=== PATIENT | male | born 1940 | race Caucasian/White ===

== ENCOUNTER 2017-11-05 11:02 | Emergency (ER) | payer MEDICARE, OTHER ==
[~2017-11-05] VITALS: Ht 190.5 cm; Wt 103.0 kg
[2017-11-05] MEDS ORDERED: ATIVAN1 MG PO (11:10)
[2017-11-05] MEDS ORDERED: COREG6.25 MG PO (11:11)
[2017-11-05] MEDS ORDERED: CANDESARTAN-HC1 EAC2 PO (11:11)
[2017-11-05] MEDS ORDERED: FLOMAX0.4 MG PO (11:11)
[2017-11-05] MEDS ORDERED: ZOCOR20 MG PO (11:12)
[2017-11-05] MEDS ORDERED: NEXIUM40 MG PO (11:12)
[2017-11-05] MEDS ORDERED: GLUCOPHAGE XR500 MG PO (11:12)
[2017-11-05] MEDS ORDERED: NORVASC10 MG PO (11:12)
[2017-11-05] MEDS ORDERED: ONGLYZA2.5 MG PO (11:13)
[2017-11-05] MEDS ORDERED: KEYTRUDA100 MG/4 M IV (11:14)
[2017-11-05 12:03] LABS: HEMATOCRIT 39.5 % (42.0-52.0); HEMOGLOBIN 13.3 gm/dL (14.0-18.0); MCH 29.1 pg (26.0-34.0); MCHC 33.7 g/dL (28.0-37.0); MCV 86.3 fL (80.0-100.0); MPV 6.7 fl. (7.2-11.1); NUCLEATED RBCS 0 /100WBC; PLATELET COUNT* 378 thou/uL (150-400); RBC 4.57 mil/uL (4.50-6.00); RDW-CV 14.7 % (10.5-14.5); WBC 8.1 thou/uL (4.0-11.0)
[2017-11-05 12:06] LABS: ANION GAP 9 mmol/L (7-16); BUN 20 mg/dL (7-18); CALCIUM 8.7 mg/dL (8.5-10.1); CHLORIDE 105 mmol/L (98-107); CO2 30 mmol/L (21-32); GLUCOSE 123 mg/dL (70-99); POTASSIUM 3.7 mmol/L (3.5-5.1); SODIUM 144 mmol/L (136-145)
[2017-11-05 12:13] LABS: ALKALINE PHOSPHATASE 108 U/L (46-116); MAGNESIUM 2.2 mg/dL (1.8-2.4); SGOT 19 U/L (15-37); SGPT 60 U/L (30-65); TOTAL BILIRUBIN 0.6 mg/dL (<0.1-1.0); TOTAL PROTEIN 7.4 g/dL (6.4-8.2); TROPONIN-I LEVEL <0.06 ng/mL (<0.06)
[2017-11-05 12:25] LABS: URINE BILIRUBIN NEGATIVE (Negative); URINE BLOOD NEGATIVE (Negative); URINE CLARITY CLEAR; URINE COLOR YELLOW; URINE GLUCOSE-RANDOM NEGATIVE (Negative); URINE KETONES NEGATIVE (Negative); URINE LEUKOCYTES-REFLEX NEGATIVE (Negative); URINE NITRITE-REFLEX NEGATIVE (Negative); URINE PROTEIN NEGATIVE (Negative); URINE SPECIFIC GRAVITY 1.025 (1.005-1.030); URINE UROBILINOGEN 0.2 E.U./dl (0.2-1.0)
[2017-11-05 12:46] LABS: ABSOLUTE EOSINOPHILS 1.2 thou/uL (0.0-0.7); ABSOLUTE LYMPHOCYTES 0.6 thou/uL (0.8-5.3); ABSOLUTE MONOCYTES 0.5 thou/uL (0.0-1.2); ABSOLUTE NEUTROPHILS 5.8 thou/uL (1.6-8.1); PLATELET ESTIMATE ADEQUATE
[2017-11-05 14:36] VITALS: BP 131/71
--- NOTE | 2017-11-06 11:10 | EKG ---
[place] [address] ELECTROCARDIOGRAM REPORT Name: NITESHDEBBIE Caicedo Room: [facility]#: [id number] Admission: 11/05/17 Attend Phys: Discharge: 11/05/17 Date of : 38 Report #: [id number] THIS REPORT FOR: //name// [facility] ED Test Date: 2017-11-05 Test Time: 11:16:42 Pat Name: DEBBIE DOWLING Department: Room: Gender: B[employer] Machine Operator: Shanice VIGIL : 1940 Requested By: Nereida Chin Order Number: [id number] MD: Regan Ross Measurements Intervals Foreman Rate: 79 P: MS: QRS: 65 QRSD: 160 T: -6 QT: 418 QTc: 480 Interpretive Statements Atrial flutter Right bundle branch block Compared to ECG 07/21/2008 19:01:37 Right bundle-branch block now present Electronically Signed On 11-06-2017 11:10:20 CDT by Regan Ross [email or web address] <ELECTRONICALLY SIGNED> By: Regan Ross MD, [facility] 11/06/17 1110 1116 1116 Regan Ross MD, FAC /EPI
== END 2017-11-05 14:36 | disposition still patient (30) ==
LOC: M.ERS 11:02
PROVIDERS: Personal Emergency Response Attendant
DX: C78.00 Secondary malignant neoplasm of unspecified lung (principal); R41.82 Altered mental status, unspecified; I10 Essential (primary) hypertension; N40.0 Benign prostatic hyperplasia without lower urinary tract symptoms; E78.5 Hyperlipidemia, unspecified; Z90.49 Acquired absence of other specified parts of digestive tract; Z96.652 Presence of left artificial knee joint; Z88.0 Allergy status to penicillin